=== PATIENT | female | born 1960 | race Caucasian/White ===

== ENCOUNTER 2019-05-24 17:11 | Inpatient (IN) | payer OTHER ==
[~2019-05-24] VITALS: Ht 157.5 cm; Wt 53.3 kg
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
[2019-05-24 17:13] VITALS: BP 112/77
[2019-05-24] MEDS ORDERED: SPIRIVA INH (17:26)
[2019-05-24] MEDS ORDERED: SYMBICORT160 MCG/4. INH (17:26)
[2019-05-24] MEDS ORDERED: VENTOLIN HFA 1818 GM INH (17:26)
[2019-05-24 17:41] LABS: ABSOLUTE NEUTROPHILS 9.9 thou/uL (1.4-8.2); BASOPHILS 0.5 % (0.0-2.0); EOSINOPHILS 0.2 % (0.0-3.0); HEMOGLOBIN 11.2 gm/dL (12.0-15.0); LYMPHOCYTES 9.1 % (24.0-44.0); MCH 26.9 pg (26.0-34.0); MCV 84.2 fL (80.0-100.0); MONOCYTES 4.7 % (1.0-8.0); PLATELET COUNT 328 thou/uL (150-400); POLYS 85.5 % (36.0-66.0); RBC 4.16 mil/uL (4.20-5.00); RDW 21.1 % (10.5-14.5); WBC 11.6 thou/uL (4.0-11.0)
[2019-05-24 17:51] LABS: ANION GAP 20 mmol/L (7-16); BUN 90 mg/dL (7-18); CALCIUM 9.3 mg/dL (8.5-10.1); CHLORIDE 99 mmol/L (98-107); CO2 13 mmol/L (21-32); CREATININE 1.5 mg/dL (0.6-1.0); GLUCOSE 112 mg/dL (74-106); POTASSIUM 4.5 mmol/L (3.5-5.1); SODIUM 132 mmol/L (136-145)
[2019-05-24 18:01] LABS: ALBUMIN 3.7 g/dL (3.4-5.0); SGOT 12 U/L (15-37); SGPT 7 U/L (30-65); TOTAL BILIRUBIN 0.4 mg/dL (<0.1-1.0); TOTAL PROTEIN 8.9 g/dL (6.4-8.2); TROPONIN-I <0.06 ng/mL (<0.06)
[2019-05-24 18:32] LABS: URINE BILIRUBIN NEGATIVE (Negative); URINE BLOOD 3+ (Negative); URINE CLARITY CLOUDY; URINE COLOR YELLOW; URINE GLUCOSE-RANDOM* NEGATIVE (Negative); URINE KETONES TRACE (Negative); URINE NITRITE-REFLEX NEGATIVE (Negative); URINE PROTEIN (DIPSTICK) NEGATIVE (Negative); URINE SPECIFIC GRAVITY 1.015 (1.005-1.035); URINE UROBILINOGEN 0.2 E.U./dl (0.2-1.0)
[2019-05-24 18:33] LABS: URINE LEUKOCYTES-REFLEX 3+ (Negative)
[2019-05-24 18:42] LABS: SQUAMOUS 0-3 Few /LPF (0-3)
[2019-05-24 18:43] LABS: CASTS None Seen /LPF (None Seen); CRYSTALS None Seen /LPF (None Seen); URINE RBC 3-10 Few /HPF (0-2); URINE WBC-REFLEX 6-15 Few /HPF (0-5)
[2019-05-24 20:42] LABS: SALICYLATE 28.4 mg/dL (2.8-20.0)
[2019-05-24 20:43] LABS: AMP/METHAMP Negative (Negative); BARBITURATES Negative (Negative); BENZODIAZEPINES Negative (Negative); COCAINE Negative (Negative); METHADONE Negative (Negative); OPIATES Negative (Negative); PCP Negative (Negative)
[2019-05-24 21:27] VITALS: BP 126/67
[2019-05-24 21:42] VITALS: BP 128/67
[2019-05-24 22:02] LABS: HEMATOCRIT 26.3 % (37.0-47.0); HEMOGLOBIN 8.7 gm/dL (12.0-15.0)
[2019-05-24] MEDS ORDERED: NEURONTIN600 MG PO (22:02)
[2019-05-24] MEDS ORDERED: NEURONTIN 300300 M1 PO (22:03)
[2019-05-24] MEDS ORDERED: CHILDREN'S ASPI81 M1 PO (22:07)
[2019-05-24 22:31] VITALS: BP 125/60
[2019-05-24 22:37] LABS: APTT 26.8 Seconds (24.5-32.8); PROTIME 10.4 Seconds (9.3-11.4)
[2019-05-25 04:26] VITALS: BP 126/56
[2019-05-25 05:06] LABS: HEMATOCRIT 23.7 % (37.0-47.0); HEMOGLOBIN 7.7 gm/dL (12.0-15.0); MCH 27.2 pg (26.0-34.0); MCHC 32.5 g/dL (28.0-37.0); MCV 83.7 fL (80.0-100.0); RBC 2.83 mil/uL (4.20-5.00); RDW 21.4 % (10.5-14.5); WBC 5.2 thou/uL (4.0-11.0)
[2019-05-25 05:20] LABS: CREATININE 0.9 mg/dL (0.6-1.0); MAGNESIUM 1.9 mg/dL (1.8-2.4); POTASSIUM 3.6 mmol/L (3.5-5.1)
[2019-05-25 05:23] LABS: % SATURATION 13 % (20-39); IRON 28 ug/dL (50-170); TIBC 224 ug/dL (250-450)
[2019-05-25 05:58] LABS: FOLIC ACID 11.4 ng/mL (8.6-58.9)
[2019-05-25 07:52] VITALS: BP 122/57
--- NOTE | 2019-05-25 07:55 | NUR ---
ADMITTTED TO ROOM 212 FROM ER WITH PROTNIX BOLUS INFUSING, VSS, FLUIDS STARTED, AND PROTONIX GTT STARTED, POSITIVE STOOL FOR OB, REMINDED PT TO CALL FOR ASSIST UP TO BSC, WILL CON'T TO MONITOR PER PPOC.
[2019-05-25 10:49] LABS: HEMATOCRIT 24.5 % (37.0-47.0); HEMOGLOBIN 7.9 gm/dL (12.0-15.0)
[2019-05-25 12:09] VITALS: BP 124/55
--- NOTE | 2019-05-25 13:27 | EKG ---
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 : 1960 Requested By: Fe Bcaa Order Number: [id number] MD: Harpal Villegas Measurements Intervals [place] Rate: 112 P: 83 DC: 120 QRS: 47 QRSD: 75 T: 32 QT: 307 QTc: 419 Interpretive Statements Sinus tachycardia Right atrial abnormality Nonspecific ST segment abnormality No previous ECG available for comparison Electronically Signed On 05-25-2019 13:27:06 CDT by Harpal Villegas [email or web address] <ELECTRONICALLY SIGNED> By: Harpal Villegas MD, [facility] 05/25/19 1327 1717 1717 Harpal Villegas MD, FACC /EPI
[2019-05-25 16:10] VITALS: BP 134/64
--- NOTE | 2019-05-25 16:39 | NUR ---
AAOX4. DEMANDING, IMPATIENT. SR PER TELE. IVF, PROTONIX DRIP ORDERED. HGB STABLE, INCREASED FROM 7.7 TO 7.9 IN FOUR HOURS. PERMIT SIGNED FOR EGD TOMORROW. WILL ASSIST TO SHOWER.
[2019-05-25 19:41] VITALS: BP 123/62
[2019-05-26 04:10] VITALS: BP 139/61
--- NOTE | 2019-05-26 04:15 | NUR ---
ASSESSMENT DOCUMENTED.PT BEEN RESTING IN NO ACUTE DISTRESS.VSS.CONT ON PROTONIC DRIP,TOLERATED.NO GI BLEED NOTED.UP WITH ASSIST TO COMMOND.PT PLANNED TO HAVE EGD TODAY.NO CONCERNS VOICED.WILL CONT TO MONITOR PER POC.
[2019-05-26 09:30] VITALS: BP 120/69
[2019-05-26 10:37] LABS: HEMATOCRIT 24.1 % (37.0-47.0); HEMOGLOBIN 7.7 gm/dL (12.0-15.0)
--- NOTE | 2019-05-26 11:45 | NUR ---
met with patient. She is A/Ox4. She lives in independent apt with her niece. she reports [employer] she uses a walker and has a flight of steps to apt and at times difficulty with steps. Patient has no PCP. Patient [place] [employer] and [place]. she can call [employer] for in network PCP. Therapy to dionna.
[2019-05-26 12:10] VITALS: BP 126/66
--- NOTE | 2019-05-26 16:27 | NUR ---
ASSESSMENT CHARTED - MEDS PER MAR - LINDA DIET AND FLUIDS. UP TO THE BATHOOM WITH STANDBY ASSIST. EGD COMPLETED THIS AM - PT NOW ON SOFT FIBER RESTRICTED DIET. LINDA WELL. CTA OF ABDO COMPLETED . GIVEN MORPHINE X 2 DOSES FOR CO'S OF BACK PAIN WITH MOD RELIEF. - PATIENT WITH CHRONIC BACKPAIN. RESTING IN BED AT THE PRESENT TIME.
[2019-05-26 20:15] VITALS: BP 112/62
[2019-05-27 04:00] VITALS: BP 125/59
[2019-05-27 05:25] LABS: CALCIUM 8.5 mg/dL (8.5-10.1); CREATININE 0.7 mg/dL (0.6-1.0); POTASSIUM 3.8 mmol/L (3.5-5.1)
[2019-05-27 07:31] LABS: HEMATOCRIT 21.5 % (37.0-47.0); HEMOGLOBIN 7.1 gm/dL (12.0-15.0); MCH 27.2 pg (26.0-34.0); MCHC 32.7 g/dL (28.0-37.0); MCV 83.2 fL (80.0-100.0); RBC 2.59 mil/uL (4.20-5.00); RDW 21.3 % (10.5-14.5); WBC 3.7 thou/uL (4.0-11.0)
[2019-05-27 08:48] VITALS: BP 132/74
[2019-05-27] MEDS ORDERED: PANTOPRAZOLE SO40 M1 PO (09:40)
[2019-05-27 10:46] LABS: HEMATOCRIT 22.1 % (37.0-47.0); HEMOGLOBIN 7.2 gm/dL (12.0-15.0)
[2019-05-27 11:39] VITALS: BP 132/74
--- NOTE | 2019-05-27 13:02 | NUR ---
ASSESSMENT CHARTED - MEDS PER OCT - NO CO'S OF NAUSEA. GIVEN MORPHINE X 1 DOSE FOR CO'S OF BACK PAIN WITH PT SLEEPING. UP TO THE BSC WITH STBY ASSIST. PT HOME THIS AFTERNOON - INSTRUCTION RE HOME MEDS/ CARE AND FOLLOW UP GIVEN TO PATIENT - STATED UNDERSTANDING OF INSTRUCTION GIVEN. LEFT UNIT VIA WHEELCHAIR - HOME VIA PVT VEHICLE ACCOMAPNIED BY AUNT. IV AND MONITOR REMOVED - NO CO'S AT TIME OF D/C.
--- NOTE | 2019-05-27 17:06 | PATH ---
[facility] [address] [place] [address] PATHOLOGY RPT PROCEDURE Name: ALLIE BACA Room #: 212-P DIS IN M.R.#: [id number] Admission: 05/24/19 Date of : 58 Discharge: 05/27/19 Report #: [id number] Path Case #: [id number] [facility] Accession Number: [id number] . 01 Material submitted: . PART A: small bowel - SMALL BOWEL BX PART B: stomach - BX GASTRITIS . 01 Clinical history: . Melena, anemia Gastritis, duodenal ulcers A rule out celiac disease B rule out H. pylori . 02 Diagnosis: A. Small bowel mucosa, small bowel rule out celiac disease, endoscopic biopsy: - Mild non-specific acute and chronic duodenitis associated with focal fundic-type metaplasia, compatible with peptic duodenitis. - Negative for villous blunting or increase in intraepithelial lymphocytes. . B. Gastric mucosa, gastritis rule out H. pylori, endoscopic biopsy: - Mild chronic inflammation. - Negative for intestinal metaplasia or atrophy. - Negative for Helicobacter pylori (properly controlled immunohistochemical stain performed). (IUV/db; 05/27/2019) LBQ 05/27/2019 1426 Local . 02 Electronically signed: . Alyssa Durham MD, Pathologist NPI- [id number] . 01 Gross description: . A. The specimen is received in formalin, labeled "Allie Baca, small bowel BX" and consists of multiple fragments of barber tissue measuring 1.3 x 0.6 x 0.3 cm in aggregate which are entirely submitted in A1. . B. The specimen is received in formalin, labeled "Allie Baca, BX gastritis" and consists of 5 fragments of pink-barber tissue measuring between 0.2 x 0.2 cm and 0.7 x 0.2 x 0.1 cm which are entirely submitted in B1. (SDY; 05/26/2019) SYU/SYU 05/26/2019 142 Local . 02 Pathologist provided ICD-10: [address] [address] PATHOLOGY RPT PROCEDURE Name: ALLIE BACA Room #: 212-P DIS IN M.R.#: [id number] Admission: 05/24/19 Date of : 58 Discharge: 05/27/19 Report #: [id number] Path Case #: [id number] K29.80, K29.50 . 02 CPT . 514212, [id number], [id number] Specimen Comment: A courtesy copy of this report has been sent to Specimen Comment: [phone], . Specimen Comment: Report sent to / DR GRANT Performed at: [address], [place] [id number] MD Kevin Hightower MD Phone: [phone] Performed at: [address] [id number] MD Alyssa Durham MD Phone: [phone]
--- NOTE | 2019-05-27 18:19 | P ---
[facility] [place] [address] PROCEDURE REPORT Name: ALLIE PARSONS Room #: [facility] IN M.R.#: [id number] Admission: 05/24/19 Attend Phys: Jonathan Underwood MD Discharge: 05/27/19 Date of : 58 Report #: [id number] THIS REPORT FOR: //name// CC: Jonathan Underwood [facility] physician/PCP DATE OF SERVICE: 05/26/2019 BRIEF HISTORY: The patient is a 59-year-old woman who presented with syncope, melanotic stools and drop in hemoglobin. She has no upper GI complaints. She does have COPD. PREOPERATIVE DIAGNOSIS: Upper gastrointestinal bleeding. POSTOPERATIVE DIAGNOSES: 1. Extensive diffuse ulceration of the duodenum. 2. Erosive gastritis. 3. Scarring of the stomach consistent with previous ulcer disease. MEDICATIONS: Deep sedation with propofol per Anesthesia. SPECIMENS: 1. Biopsies of duodenum. 2. Biopsies of gastritis. ESTIMATED BLOOD LOSS: 3 mL. PROCEDURE: Esophagogastroduodenoscopy with biopsy. FINDINGS: Prior to propofol sedation, the procedure of upper endoscopy was discussed with the patient as well as potential risks and its complications. She indicates she understands and desires to proceed. With the patient in the left lateral decubitus position, the Olympus video endoscope was inserted into the cervical esophagus under direct vision without difficulty. Examination of this organ through its entire length revealed normal esophageal mucosa. The scope was advanced into the stomach, was examined on end view as well as retroflexed views. There were noted to be scattered erosions in the antrum. No ulcers were seen. No active bleeding lesions were seen. Also, examination of the distal stomach revealed at least one area of scarring consistent with healed ulcer disease. Upon retroflexion, no mass lesions were seen. A hiatus hernia was not seen. The pylorus was unremarkable. Examination of the duodenal bulb and postbulbar to sweep down to the third portion revealed superficial ulceration without active bleeding in the duodenal bulb in the proximal portion and the second portion of duodenum. Beyond that, the mucosa was irregular, but not grossly ulcerated. Multiple small bowel biopsies were [facility] [address] [place] [address] PROCEDURE REPORT Name: ALLIE PARSONS Room #: 212-P [facility] IN M.R.#: [id number] Admission: 05/24/19 Attend Phys: Jonathan Underwood MD Discharge: 05/27/19 Date of : 58 Report #: [id number] obtained. No strictures or masses were seen. Good active bleeding was not identified. At that point, the scope was started on careful circumferential views confirmed the above findings. The patient tolerated the procedure well. DISPOSITION: The patient with evidence of GI bleeding and drop in hemoglobin with ulcerations primarily in the duodenum. She also has evidence of prior ulcer disease in the stomach, but not active ulcers at this time. She does not appear to be actively bleeding. The etiology of her ulcer disease is not entirely clear. She reports she has only taken one aspirin daily. She does not use any other nonsteroidals. Considerations include H. pylori. Also, wonder about ischemic in this patient who has a long history of cigarette smoking. At this time, we will continue PPI drip. Continue to monitor her hemoglobin. Also, we will evaluate for mesenteric vascular disease with a CT angio. In addition, we will obtain a fasting gastrin, although it may be affected by her PPI drip at this point in time. In addition, she has had a colonoscopy, but reports it has been more than 10 years. Also, suggest a colonoscopy. More than likely, this can be done as an outpatient. However, if there is evidence of further bleeding or abnormalities on the CT, she may need colonoscopy during this admission. <ELECTRONICALLY SIGNED> By: Alex Jackson MD 05/27/19 1819 0836 2347 Alex Jackson MD /nt
== END 2019-05-27 13:00 | disposition home or self-care (01) | DRG 378 ==
LOC: ER 17:11 → EROBS 20:10 → 2N 20:10 → ENTRNSPT 05-27 12:53 → EDTRNSPTSTS 05-27 12:55 → 2N 05-27 13:00
PROVIDERS: Internal Medicine; Nurse Practitioner Acute Care; Physician Assistant; Specialist; ADMIT Hospitalist
PROC: 0DB98ZX Excision of Duodenum, Via Natural or Artificial Opening Endoscopic, Diagnostic (ICD-10-PCS; principal; 2019-05-26)
PROC: 0DB68ZX Excision of Stomach, Via Natural or Artificial Opening Endoscopic, Diagnostic (ICD-10-PCS; principal; 2019-05-26)
DX: K26.4 Chronic or unspecified duodenal ulcer with hemorrhage (principal); D62 Acute posthemorrhagic anemia; N17.9 Acute kidney failure, unspecified; N39.0 Urinary tract infection, site not specified; N18.4 Chronic kidney disease, stage 4 (severe); E87.2 Acidosis; J96.10 Chronic respiratory failure, unspecified whether with hypoxia or hypercapnia; J44.9 Chronic obstructive pulmonary disease, unspecified; G89.29 Other chronic pain; M54.9 Dorsalgia, unspecified; F17.210 Nicotine dependence, cigarettes, uncomplicated; A59.9 Trichomoniasis, unspecified; K29.01 Acute gastritis with bleeding; E86.0 Dehydration; Z79.82 Long term (current) use of aspirin
CPT/HCPCS: 10081; 62110; 62900; 70005

== ENCOUNTER 2020-11-10 14:47 | Emergency (ER) | payer OTHER ==
[~2020-11-10] VITALS: Ht 157.5 cm; Wt 43.1 kg
[~2020-11-10 14:47] MED LIST: CHILDREN'S ASPI81 M1 PO; NEURONTIN 300300 M1 PO; NEURONTIN600 MG PO; PANTOPRAZOLE SO40 M1 PO; SPIRIVA INH; SYMBICORT160 MCG/4. INH; VENTOLIN HFA 1818 GM INH
[2020-11-10 14:53] VITALS: BP 149/89
[2020-11-10 15:38] LABS: ABSOLUTE NEUTROPHILS 3.3 thou/uL (1.4-8.2); BASOPHILS 1.4 % (0.0-2.0); HEMATOCRIT 40.7 % (37.0-47.0); HEMOGLOBIN 13.1 gm/dL (12.0-15.0); MCH 26.6 pg (26.0-34.0); MCHC 32.1 g/dL (28.0-37.0); MCV 82.9 fL (80.0-100.0); MONOCYTES 6.9 % (1.0-8.0); PLATELET COUNT 216 thou/uL (150-400); POLYS 67.7 % (36.0-66.0); RBC 4.91 mil/uL (4.20-5.00); RDW 16.5 % (10.5-14.5); WBC 4.9 thou/uL (4.0-11.0)
[2020-11-10 15:50] LABS: ANION GAP 14 mmol/L (7-16); BUN 40 mg/dL (7-18); CALCIUM 9.2 mg/dL (8.5-10.1); CHLORIDE 102 mmol/L (98-107); CO2 18 mmol/L (21-32); CREATININE 1.3 mg/dL (0.6-1.0); GLUCOSE 102 mg/dL (74-106); POTASSIUM 4.5 mmol/L (3.5-5.1); SODIUM 134 mmol/L (136-145)
[2020-11-10 15:54] LABS: APTT 27.9 Seconds (24.5-32.8); PROTIME 10.7 Seconds (9.3-11.4)
[2020-11-10 16:00] LABS: ALBUMIN 3.9 g/dL (3.4-5.0); SGOT 11 U/L (15-37); SGPT 15 U/L (14-59); TOTAL BILIRUBIN 0.2 mg/dL (0.2-1.0); TOTAL PROTEIN 8.3 g/dL (6.4-8.2); TROPONIN-I <0.06 ng/mL (<0.06)
[2020-11-10 17:29] LABS: URINE BILIRUBIN NEGATIVE (Negative); URINE BLOOD NEGATIVE (Negative); URINE CLARITY CLEAR; URINE COLOR YELLOW; URINE GLUCOSE-RANDOM* NEGATIVE (Negative); URINE KETONES TRACE (Negative); URINE LEUKOCYTES-REFLEX TRACE (Negative); URINE NITRITE-REFLEX NEGATIVE (Negative); URINE PROTEIN (DIPSTICK) 1+ (Negative); URINE SPECIFIC GRAVITY 1.025 (1.005-1.035); URINE UROBILINOGEN 0.2 E.U./dl (0.2-1.0)
[2020-11-10] MEDS ORDERED: TESSALON PERLE100 MG PO (17:58)
[2020-11-10] MEDS ORDERED: ZOFRAN ODT4 MG PO (17:58)
[2020-11-10 18:13] LABS: SQUAMOUS >10 Many /LPF (0-3)
[2020-11-10 18:14] LABS: CRYSTALS None Seen /LPF (None Seen); URINE RBC 0-2 Rare /HPF (0-2); URINE WBC-REFLEX 0-5 Rare /HPF (0-5)
[2020-11-10 18:15] LABS: HYALINE CASTS 0-3 Few /LPF (None Seen)
--- NOTE | 2020-11-11 08:12 | EKG ---
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 : 1960 Requested By: Christian Cochran Order Number: [id number] MD: Harpal Villegas Measurements Intervals [place] Rate: 69 P: 56 AL: 135 QRS: 35 QRSD: 82 T: 41 QT: 394 QTc: 422 Interpretive Statements Sinus rhythm No significant abnormality Compared to ECG 05/24/2019 17:17:10 Sinus tachycardia no longer present ST (T wave) deviation no longer present Electronically Signed On 11-11-2020 8:12:16 CDT by Harpal Villegas [email or web address] <ELECTRONICALLY SIGNED> By: Harpal Villegas MD, [facility] 11/11/20 0812 1537 1537 Harpal Villegas MD, FACC /EPI
== END 2020-11-10 17:59 | disposition home or self-care (01) ==
LOC: ER 14:47
PROVIDERS: Emergency Medicine
DX: B34.9 Viral infection, unspecified (principal); J06.9 Acute upper respiratory infection, unspecified; R06.00 Dyspnea, unspecified; J44.9 Chronic obstructive pulmonary disease, unspecified; F17.210 Nicotine dependence, cigarettes, uncomplicated; Z79.899 Other long term (current) drug therapy; Z88.0 Allergy status to penicillin; Z20.822 Contact with and (suspected) exposure to COVID-19

== ENCOUNTER 2021-09-19 14:34 | Emergency (ER) | payer OTHER ==
[~2021-09-19] VITALS: Ht 157.5 cm; Wt 52.2 kg
[~2021-09-19 14:34] MED LIST changes: +TESSALON PERLE100 MG PO; +ZOFRAN ODT4 MG PO
[2021-09-19 14:36] VITALS: BP 151/80
[2021-09-19] MEDS ORDERED: CEPHALEXIN500 MG PO (14:56)
== END 2021-09-19 15:20 | disposition home or self-care (01) ==
LOC: ER 14:34
DX: S51.012A Laceration without foreign body of left elbow, initial encounter (principal); L08.89 Other specified local infections of the skin and subcutaneous tissue; J44.9 Chronic obstructive pulmonary disease, unspecified; J45.909 Unspecified asthma, uncomplicated; F32.9 Major depressive disorder, single episode, unspecified; Z79.51 Long term (current) use of inhaled steroids; Z79.899 Other long term (current) drug therapy; Z88.0 Allergy status to penicillin; W01.0XXA Fall on same level from slipping, tripping and stumbling without subsequent striking against object, initial encounter; Y93.89 Activity, other specified; Y92.89 Other specified places as the place of occurrence of the external cause; Y99.8 Other external cause status